=== PATIENT | female | born 1995 | race Caucasian/White ===

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

== ENCOUNTER 2017-04-10 11:09 | Emergency (ER) | payer OTHER | END 2017-04-10 11:45 | disposition left against medical advice (07) | LOC: MADERS 11:09 | DX: Z53.21 Procedure and treatment not carried out due to patient leaving prior to being seen by health care provider (principal) ==

== ENCOUNTER 2017-04-10 20:47 | Emergency (ER) | payer OTHER ==
[~2017-04-10 20:47] MED LIST changes: -Donnatal Elixir 16.2 MG/5 ML UDCUP ONE; +Sodium Chloride 0.9% 1,000 ML BAG ONE
[2017-04-10 21:40] LABS: Bilirubin Negative (Negative); Blood, Urine Trace (Negative); Glucose, Urine (Dipstick) Negative (Negative); Leukocyte Small (Negative); Nitrite Negative (Negative); Protein, Urine (Dipstick) Trace mg/dL (Neg-Trace)
[2017-04-10 21:41] LABS: Clarity Hazy (Clear)
[2017-04-10 21:44] LABS: #Basophils 0.1 thou/uL (0.0-0.2); #Lymphocytes 1.3 thou/uL (1.20-3.40); #Neutrophils 6.3 thou/uL (1.40-6.50); %Basophils 0.6 % (0.0-1.0); %Eosinophils 0.4 % (0.0-10.0); %Lymphocytes 14.9 % (28.0-48.0); %Neutrophils 73.2 % (31.0-61.0); Mean Corpuscular HGB CONC 33.8 g/dL (32.0-36.0); Mean Corpuscular Hemoglobin 30.6 pg (25.0-35.0); Mean Corpuscular Volume 90.6 fl (77.0-87.0); Mean Platelet Volume 9.9 fL (7.4-10.4); Platelet Count 157 thou/uL (130-400); RBC Distribution Width 10.8 % (11.5-14.5); Red Blood Cell (RBC) Count 4.59 mill/uL (4.00-5.20); White Blood Cell (WBC) Count 8.6 thou/uL (4.8-10.8)
[2017-04-10 21:47] LABS: Bacteria/HPF 2+ HPF (None Seen)
[2017-04-10 21:48] LABS: Pregnancy Test - Urine (BHCG) Negative (Negative); Pregu Control Background? CLEAR/WHITE (CLR/WHITE); Pregu Control Bar Appear? YES (CONTROL BAR)
[2017-04-10] MEDS ORDERED: Ketorolac Tromethamine 30 MG/ML VIAL ONE (21:53)
[2017-04-10 21:58] LABS: ALT (SGPT) 9 U/L (8-55); AST (SGOT) 11 U/L (5-30); Albumin 4.1 g/dL (3.5-5.0); Alkaline Phosphatase 66 U/L (40-150); Anion Gap 13 mmol/L (10-20); BUN (Urea Nitrogen) 5 mg/dL (8.4-21.0); Bilirubin, Total 0.5 mg/dL (0.2-1.2); Calc. Creatinine Clearance 0 mL/min (70-130); Calcium 9.1 mg/dL (7.8-10.44); Carbon Dioxide 27 mmol/L (22-29); Chloride 104 mmol/L (98-107); Estimated GFR-MDRD Greater than 90; Globulin 2.9 g/dL (2.4-3.5); Glucose 89 mg/dL (70-105); Potassium 3.7 mmol/L (3.5-5.1); Sodium 140 mmol/L (136-145)
[2017-04-10 22:00] LABS: Lipase Less than 4 U/L (8-78)
[2017-04-10] MEDS ORDERED: cefTRIAXone\\ROCEPHIN 2 GM VIAL ONE (22:08)
== END 2017-04-10 23:12 | disposition home or self-care (01) ==
LOC: MADERS 20:47
DX: N12 Tubulo-interstitial nephritis, not specified as acute or chronic (principal); F17.210 Nicotine dependence, cigarettes, uncomplicated
CPT/HCPCS: 36415; 80053; 81003; 81015; 81025; 82150; 83690; 85025; 86140; 87077; 87086; 87186; 96361; 96374; 96375; J0696; J1885; J7050

== ENCOUNTER 2018-01-08 13:33 | Emergency (ER) | payer OTHER, SELFPAY ==
[2018-01-08 13:56] LABS: Bilirubin Small (Negative); Blood, Urine Negative (Negative); Clarity Clear (Clear); Glucose, Urine (Dipstick) Negative (Negative); Leukocyte Small (Negative); Nitrite Negative (Negative); Protein, Urine (Dipstick) 100 mg/dL (Neg-Trace); Specific Gravity, Urine 1.025 (1.005-1.030)
[2018-01-08 14:02] LABS: Pregnancy Test - Urine (BHCG) Negative (Negative); Pregu Control Background? CLEAR/WHITE (CLR/WHITE); Pregu Control Bar Appear? YES (CONTROL BAR); Specific Gravity 1.025 (1.002-1.036)
[2018-01-08 14:05] LABS: #Basophils 0.1 thou/uL (0.0-0.2); #Eosinphils 0.1 thou/uL (0.0-0.7); #Lymphocytes 2.1 thou/uL (1.20-3.40); #Monocytes 0.5 thou/uL (0.11-0.59); #Neutrophils 2.7 thou/uL (1.40-6.50); %Basophils 1.3 % (0.0-1.0); %Eosinophils 1.3 % (0.0-10.0); %Lymphocytes 39.2 % (28.0-48.0); %Monocytes 8.8 % (0.0-4.0); %Neutrophils 49.4 % (31.0-61.0); Hemoglobin 14.6 g/dL (12.0-16.0); Mean Corpuscular Hemoglobin 28.6 pg (25.0-35.0); Mean Corpuscular Volume 86.7 fL (78.0-98.0); Mean Platelet Volume 8.9 fL (7.4-10.4); Platelet Count 177 thou/uL (130-400); RBC Distribution Width 10.8 % (11.5-14.5); Red Blood Cell (RBC) Count 5.11 mill/uL (4.00-5.20); White Blood Cell (WBC) Count 5.4 thou/uL (4.8-10.8)
[2018-01-08] MEDS ORDERED: Ondansetron ODT 4 MG TAB ONE (14:05)
[2018-01-08] MEDS ORDERED: Ketorolac Tromethamine 30 MG/ML VIAL ONE (14:05)
[2018-01-08] MEDS ORDERED: Ondansetron HCl/PF 4 MG/2 ML Vial ONE (14:05)
[2018-01-08 14:11] LABS: Bacteria/HPF 1+ HPF (None Seen); RBC/HPF 0-3 HPF (0-3)
[2018-01-08 14:20] LABS: ALT (SGPT) 12 U/L (8-55); AST (SGOT) 14 U/L (5-34); Albumin 4.8 g/dL (3.5-5.0); Alkaline Phosphatase 63 U/L (40-150); Anion Gap 13 mmol/L (10-20); BUN (Urea Nitrogen) 5 mg/dL (7.0-18.7); Bilirubin, Total 0.6 mg/dL (0.2-1.2); Calc. Creatinine Clearance 0 mL/min (70-130); Calcium 10.1 mg/dL (7.8-10.44); Carbon Dioxide 28 mmol/L (22-29); Chloride 105 mmol/L (98-107); Estimated GFR-MDRD 88; Globulin 2.6 g/dL (2.4-3.5); Glucose 79 mg/dL (70-105); Lipase 8 U/L (8-78); Potassium 3.8 mmol/L (3.5-5.1); Protein, Total 7.4 g/dL (6.0-8.3); Sodium 142 mmol/L (136-145)
[2018-01-08 15:52] LABS: Bilirubin Negative (Negative); Blood, Urine Trace (Negative); Clarity Clear (Clear); Glucose, Urine (Dipstick) Negative (Negative); Leukocyte Negative (Negative); Nitrite Negative (Negative); Protein, Urine (Dipstick) Negative (Neg-Trace); Urobilinogen 0.2 mg/dL (0.2-1.0)
== END 2018-01-08 16:15 | disposition home or self-care (01) ==
LOC: MADERS 13:33
DX: R11.2 Nausea with vomiting, unspecified (principal); R10.30 Lower abdominal pain, unspecified; F17.210 Nicotine dependence, cigarettes, uncomplicated
CPT/HCPCS: 51701; 80053; 81003; 81015; 81025; 83690; 85025; 96361; 96374; 96375; A4353; J1885; J2405; J7050; Q0162

== ENCOUNTER 2018-03-24 11:59 | Emergency (ER) | payer SELFPAY ==
[2018-03-24 12:38] LABS: Pregnancy Test - Urine (BHCG) Negative (Negative)
[2018-03-24 12:39] LABS: Pregu Control Background? CLEAR/WHITE (CLR/WHITE); Pregu Control Bar Appear? YES (CONTROL BAR)
[2018-03-24 12:40] LABS: Specific Gravity 1.015 (1.002-1.036)
[2018-03-24] MEDS ORDERED: HYDROcodone/Acetaminophen 5/325 mg Tablet ONE (13:33)
[2018-03-24] MEDS ORDERED: Benzonatate 100 MG CAP ONE (13:33)
[2018-03-24] MEDS ORDERED: Ondansetron ODT 4 MG TAB ONE (13:33)
[2018-03-24] MEDS ORDERED: Ibuprofen 800 MG TAB ONE (13:33)
== END 2018-03-24 13:38 | disposition home or self-care (01) ==
LOC: MADERS 11:59
DX: J06.9 Acute upper respiratory infection, unspecified (principal); F17.210 Nicotine dependence, cigarettes, uncomplicated
CPT/HCPCS: 81025; 87804; 99283; Q0162

== ENCOUNTER 2018-06-07 00:28 | Emergency (ER) | payer SELFPAY ==
[2018-06-07] MEDS ORDERED: Ondansetron ODT 4 MG TAB ONE (01:09)
--- NOTE | 2018-06-07 07:39 | CT ---
HEAD CT NONCONTRAST: Date: 06/07/18 INDICATION: Post-traumatic pain. FINDINGS: No prior comparison. There is no evidence of ventriculomegaly, mass effect, midline shift, or acute intracranial hemorrha ge. Calvarium is intact. No acute fluid levels of visualized paranasal sinuses. IMPRESSION: No acute intracranial abnormality. POS: [facility]
== END 2018-06-07 02:10 | disposition home or self-care (01) ==
LOC: MADERS 00:28
DX: S06.0X0A Concussion without loss of consciousness, initial encounter (principal); F17.210 Nicotine dependence, cigarettes, uncomplicated; Y00.XXXA Assault by blunt object, initial encounter
CPT/HCPCS: 70450; Q0162

== ENCOUNTER 2019-10-11 14:22 | Emergency (ER) | payer SELFPAY ==
[2019-10-11] MEDS ORDERED: Dexamethasone 4 MG TAB ONE (15:36)
[2019-10-11] MEDS ORDERED: Amoxicillin/Potassium Clav 875 MG TAB ONE (15:36)
[2019-10-11] MEDS ORDERED: Ventolin HFA Inhaler 60 PUFF INHALER ONE (15:36)
== END 2019-10-11 15:45 | disposition home or self-care (01) ==
LOC: MADERS 14:22
DX: J01.90 Acute sinusitis, unspecified (principal); R06.2 Wheezing; B96.89 Other specified bacterial agents as the cause of diseases classified elsewhere; F17.210 Nicotine dependence, cigarettes, uncomplicated
CPT/HCPCS: 99283; J8540

== ENCOUNTER 2020-05-02 21:24 | Emergency (ER) | payer SELFPAY ==
[2020-05-02 22:15] LABS: Bilirubin Negative (Negative); Blood, Urine Negative (Negative); Clarity Clear (Clear); Glucose, Urine (Dipstick) Negative (Negative); Ketone, Urine Negative (Negative); Leukocyte Trace (Negative); Nitrite Negative (Negative); Protein, Urine (Dipstick) Negative (Neg-Trace); Urobilinogen 0.2 mg/dL (Less than 2)
[2020-05-02 22:17] LABS: RBC/HPF None Seen HPF (0-3); WBC/HPF 0-3 HPF (0-3)
[2020-05-02 22:18] LABS: Bacteria/HPF None Seen HPF (None Seen); Pregnancy Test - Urine (BHCG) Negative (Negative); Squamous Epithelial 0-3 HPF (0-3)
[2020-05-02 22:19] LABS: Pregu Control Background? CLEAR/WHITE (CLR/WHITE); Pregu Control Bar Appear? YES (CONTROL BAR)
== END 2020-05-02 22:40 | disposition home or self-care (01) ==
LOC: MADERS 21:24
DX: R11.2 Nausea with vomiting, unspecified (principal); F17.210 Nicotine dependence, cigarettes, uncomplicated
CPT/HCPCS: 36416; 81003; 81015; 81025; 99284

== ENCOUNTER 2020-06-13 16:39 | Emergency (ER) | payer SELFPAY ==
[~2020-06-13 16:39] MED LIST changes: +Iopamidol 370 76% 100 ML VIAL ONE; -Sodium Chloride 0.9% 1,000 ML BAG ONE; +Sodium Chloride 0.9% 100 ML BAG ONE
[2020-06-13] MEDS ORDERED: Morphine 4 MG/ML VIAL ONE (17:42)
[2020-06-13 18:27] LABS: #Lymphocytes 1.6 thou/uL (1.20-3.40); #Monocytes 0.7 thou/uL (0.11-0.59); #Neutrophils 16.1 thou/uL (1.40-6.50); %Basophils 0.2 % (0.0-1.0); %Eosinophils 0.1 % (0.0-10.0); %Lymphocytes 8.8 % (21.0-51.0); %Monocytes 3.9 % (0.0-10.0); Hemoglobin 14.8 g/dL (12.0-16.0); Mean Corpuscular HGB CONC 32.7 g/dL (32.0-36.0); Mean Corpuscular Hemoglobin 30.3 pg (27.0-31.0); Mean Corpuscular Volume 92.7 fL (78.0-98.0); Mean Platelet Volume 9.7 fL (7.4-10.4); Platelet Count 166 thou/uL (130-400); RBC Distribution Width 11.4 % (11.5-14.5); Red Blood Cell (RBC) Count 4.87 mill/uL (4.20-5.40); White Blood Cell (WBC) Count 18.6 thou/uL (4.8-10.8)
[2020-06-13 18:42] LABS: ALT (SGPT) 8 U/L (8-55); AST (SGOT) 8 U/L (5-34); Albumin 4.1 g/dL (3.5-5.0); Alkaline Phosphatase 67 U/L (40-110); Anion Gap 17 mmol/L (10-20); BUN (Urea Nitrogen) 7 mg/dL (7.0-18.7); Bilirubin, Total 0.6 mg/dL (0.2-1.2); Calc. Creatinine Clearance 0 mL/min (70-130); Calcium 8.9 mg/dL (7.8-10.44); Carbon Dioxide 19 mmol/L (22-29); Chloride 104 mmol/L (98-107); Globulin 2.8 g/dL (2.4-3.5); Glucose 101 mg/dL (70-105); Potassium 3.3 mmol/L (3.5-5.1); Protein, Total 6.9 g/dL (6.0-8.3); Sodium 137 mmol/L (136-145)
[2020-06-13 18:46] LABS: BHCG - Serum Negative (NEGATIVE); Pregs Control Background? CLEAR/WHITE (CLR/WHITE); Pregs Control Bar Appear? YES (CONTROL BAR)
[2020-06-13 18:59] LABS: Bilirubin Negative (Negative); Blood, Urine Trace (Negative); Glucose, Urine (Dipstick) Negative (Negative); Ketone, Urine 40 mg/dL (Negative); Leukocyte Trace (Negative); Nitrite Negative (Negative); Protein, Urine (Dipstick) Negative (Neg-Trace); Urobilinogen 0.2 mg/dL (Less than 2)
[2020-06-13 19:01] LABS: Clarity Slightly Cloudy (Clear)
[2020-06-13 19:04] LABS: Bacteria/HPF 1+ HPF (None Seen); Squamous Epithelial 0-3 HPF (0-3)
[2020-06-13 19:12] LABS: Lipase 4 U/L (8-78)
--- NOTE | 2020-06-13 19:36 | CT ---
CT abdomen and pelvis: 1. 04/22/2021 COMPARISON: None HISTORY: Diffuse abdominal pain for one day with nausea, pain radiating to the back TECHNIQUE: Axial CT imaging at 5 mm intervals from the lung bases through the pubic symphysis with IV contrast. Coronal and sagittal reformatted imaging obtained. FINDINGS: Evaluation of the bowel is suboptimal without oral contrast media. The visualized lung base s are unremarkable. No free intraperitoneal air is noted. The liver, spleen, gallbladder, pancreas, adrenal glands, and kidneys appear grossly unremarkable. The appendix is difficult to visualize on this examination. What may represent a normal-appearing [place]il[place] endix is seen on axial image 58. There are a few distal fluid-filled mildly prominent small bowel loops, some of which are mildly thick walled. There is a low-density area in the right hemipelvis on axial image 63 measuring 1.9 cm, which may rep resent a right ovarian cyst. There is mild stranding of the fat superior to a decompressed urinary bladder which could signify non specific inflammatory change. No acute osseous abnormality is noted. The vascular structures of the abdomen/pelvis appear within normal limits. No abdominal or pelvic lymphadenopathy is seen. IMPRESSION: Probable small right ovarian cyst. There are a few distal mildly prominent fluid-filled s mall bowel loops which may signify distal small bowel inflammation on the basis of inflammatory or infectious change. No evidence for bowel obstruction. No concerning findings for appendicitis althoug h the appendix is difficult to discretely visualize.
[2020-06-13] MEDS ORDERED: cefTRIAXone\\ROCEPHIN 500 MG VIAL ONE (19:49)
[2020-06-13] MEDS ORDERED: Ketorolac Tromethamine 30 MG/ML VIAL ONE (19:56)
== END 2020-06-13 20:38 | disposition home or self-care (01) ==
LOC: MADERS 16:39
DX: R10.30 Lower abdominal pain, unspecified (principal); F17.210 Nicotine dependence, cigarettes, uncomplicated; R11.2 Nausea with vomiting, unspecified; R10.817 Generalized abdominal tenderness
CPT/HCPCS: 36415; 74177; 80053; 81003; 81015; 83605; 83690; 84703; 85025; 96365; 96375; J0696; J1885; J2270; J3490; Q9967